=== PATIENT | female | born 1955 | race Caucasian/White ===

== ENCOUNTER 2017-11-03 11:11 | Outpatient (CLI) | payer OTHER ==
[2016-02-24 07:33] VITALS: BP 146/72
--- NOTE | 2017-11-09 09:36 | CONSULTATION REPORT ---
REFERRING PHYSICIAN: Dr. Deepa Garsia CONSULTING PHYSICIAN: Jean-Pierre Maurice MD Dear Dr. Garsia: HISTORY OF PRESENT ILLNESS: Thank you for the consultation request regarding Evonne Jerez. This is a 62- year-old white woman who for the past 6 months now has had right ankle pain, as well as pain, stiffness, and swelling of her hands and wrists. She was given prednisone with prompt improvement. Testing revealed a positive CCP antibody. I did not find a rheumatoid factor. Again, at present, she is doing quite well. 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 PAST MEDICAL HISTORY: Hypertension. PAST SURGICAL HISTORY: 1. Steroid injection in the left knee. 2. Hysterectomy. PRESENT MEDICATIONS: 1. Meloxicam 7.5 mg daily. 2. Hydrochlorothiazide/lisinopril 12.5/20 mg daily. 3. Prednisone 10 mg daily. 4. Tramadol as needed. ALLERGIES: The patient is allergic to: 1. Simvastatin. 2. Zoloft. 3. Acetaminophen. 4. Sulfa-based drugs. SOCIAL HISTORY: The patient does not smoke or drink. FAMILY HISTORY: Family history is negative from a rheumatological point of view. REVIEW OF SYSTEMS: The patient complains of some red eyes, dry mouth, dry nose, swelling of the legs, some heartburn, and hands sensitivity. Morning stiffness is 1 hour. Otherwise, her weight has been stable. She has had no fevers. No weakness. No fatigue. No red eye. No loss of vision. No difficulty swallowing. She has had no chest pain or pleurisy. No cough. No wheezing. No nausea, vomiting , or diarrhea. No dark stools or bloody stools. No urinary tract infections. No skin rashes, hives, photosensitivity, color changes in the hands or feet in the cold. PHYSICAL EXAMINATION: Vital Signs: Height: 5 feet 4 inches. Weight: 248 pounds. T: 96.5, R: 20 , heart rate 85, BP: 140/78. HEENT: Sclerae are anicteric. Conjunctivae are pink. No stomatitis or glossitis. LUNGS: Clear bilaterally with no crackles or wheezing. HEART: Regular rhythm. ABDOMEN: Soft and nontender. VASCULAR: No edema or cyanosis. PERIPHERAL JOINTS: No significant tenderness at the DIPs, PIPs, MCPs, wrists, elbows, and shoulders. Good range of motion at the hips. The left knee is tender mainly on the medial aspect. Both ankles are tender. MTPs are diffusely tender. IMPRESSION: Rheumatoid arthritis with unspecified rheumatoid factor. PLAN: 1. I am keeping her on prednisone 10 mg twice a day. 2. I am introducing methotrexate 3 tablets weekly with folic acid supplementation. 3. I will see her back in 4 weeks. At that time, we will adjust her methotrexate and prednisone depending on her response. Thank you very much for the opportunity to take care of your patients. Best regards, cc: Dr. Deepa CANO
== END 2017-11-03 13:24 ==
LOC: RHEU 11:11
PROVIDERS: ATTEND Internal Medicine
DX: M06.9 Rheumatoid arthritis, unspecified (principal)
CPT/HCPCS: 99213; 99214

== ENCOUNTER 2017-12-08 | Outpatient (CLI) | payer OTHER ==
--- NOTE | 2017-12-11 15:10 | OP Clinic Progress Note ---
Dear Dr. Garsia: REASON FOR VISIT: I had the pleasure of seeing Evonne Jerez in follow up. She responded quite well to prednisone 10 mg twice a day and she stopped it about a week ago. Now, she is having recurrent pain and stiffness in her hands. Her ankle pain is doing well and she has no new medical problems or symptoms. PAST MEDICAL HISTORY: Hypertension. PAST SURGICAL HISTORY: Hysterectomy. PRESENT MEDICATIONS: 1. Hydrochlorothiazide/lisinopril 12.5/20 mg daily. 2. Prednisone 10 mg daily. 3. Tramadol as needed. 4. Methotrexate 3 tablets weekly. 5. Folic acid supplementation. ALLERGIES: Patient reports allergies to: 1. Simvastatin. 2. Zoloft. 3. Tylenol. 4. Sulfa-based drugs. REVIEW OF SYSTEMS: No fevers, chills, sweats, chest pain, shortness of breath, cough, wheezing, nausea, vomiting, or diarrhea. No skin rashes or nodules. No numbness or tingling of extremities. PHYSICAL EXAMINATION: GENERAL: She looks well. VITAL SIGNS: Height: 5 feet 4 inches. Weight: 253 pounds. T: 97.8, R: 18, heart rate 80, BP: 138/80. HEENT: Sclerae are anicteric. Conjunctivae are pink. No stomatitis or glossitis. Neck: No cervical nodes. LUNGS: Clear bilaterally with no crackles or wheezing. HEART: Regular rate and rhythm. ABDOMEN: Soft and nontender. VASCULAR: No edema or cyanosis. PERIPHERAL JOINTS: DIPs, PIPs, and MCPs show just a little tenderness and some swelling at the PIPs. Tenderness at right 3rd MCP. Both wrists have good range of motion. No tenderness. Elbows, shoulders, hips, knees, ankles, and feet are unremarkable. IMPRESSION: Rheumatoid arthritis, rheumatoid factor unspecified, of multiple sites. PLAN: 1. I am bumping up her methotrexate to 6 tablets weekly and folic acid supplementation. 2. I am putting her back on prednisone 10 mg daily. 3. I would like to see her in about 8 weeks. 4. In the meantime, I have given her a lab slip which I hope she can do in your office for a rheumatoid factor, repeat sedimentation rate, CRP, CBC, and CMP, as I understand you will be seeing her in the very near future. Thank you for allowing me to take part in the care of your patient. Best regards, cc: Dr. Deepa CANO
== END 2017-12-08 14:53 ==
DX: M06.89 Other specified rheumatoid arthritis, multiple sites (principal)
CPT/HCPCS: 99213; 99214

== ENCOUNTER 2018-04-06 14:01 | Outpatient (CLI) | payer OTHER ==
[2016-02-24 07:33] VITALS: BP 146/72
--- NOTE | 2018-04-06 17:52 | OP Clinic Progress Note ---
Dear Dr. Garsia: REASON FOR VISIT: I had the pleasure of seeing Evonne Jerez in follow up. She responded to prednisone 10 mg twice a day but ran out of it 2 weeks ago. Now she is having increasing joint pain and stiffness in her hands, knees, and feet. She is tolerating the methotrexate. I had last seen her in November, I guess she missed some appointments. She did have some blood work on December 11. Sedimentate rate at that time was 22. Her rheumatoid factor was positive at 30. Liver functions and CBC were within normal limits. PAST MEDICAL AND SURGICAL HISTORY: 1. Hypertension. 2. Hysterectomy. PRESENT MEDICATIONS: 1. Hydrochlorothiazide/lisinopril 12.5/20 mg daily. 2. Prednisone 10 mg daily. 3. Tramadol as needed. 4. Methotrexate 6 tablets weekly. 5. Folic acid supplementation. ALLERGIES: 1. Simvastatin. 2. Zoloft. 3. Tylenol. 4. Sulfa-based drugs. REVIEW OF SYSTEMS: She has put on a few pounds. No fevers, chills, sweats, chest pain, shortness of breath, cough, wheezing, nausea, vomiting, or diarrhea. No numbness or tingling of her extremities. No mouth sores. PHYSICAL EXAMINATION: VITAL SIGNS: Height: 5 feet 4 inches. Weight: 255 pounds. T: 97.2, R: 20, heart rate 93, BP: 130/80. HEENT: Sclerae are anicteric. Conjunctivae are pink. No stomatitis or glossitis. LUNGS: Clear bilaterally with no crackles or wheezing. HEART: Regular rate and rhythm. ABDOMEN: Soft and nontender. VASCULAR: No edema or cyanosis. JOINTS: A little tenderness at the MCPs, otherwise, the DIPs and PIPs are unremarkable. Wrists are tender. She has some pain on abduction of her shoulders. Hips and knees are unremarkable. Ankles and MTPs are slightly tender. IMPRESSION: Seropositive rheumatoid arthritis of multiple sites. PLAN: 1. I am keeping her on methotrexate 6 tablets weekly. 2. I am decreasing her prednisone to 5 mg daily. 3. I understand she will be seeing you for blood work. I gave her a lab slip for a CBC, CMP, and a Sedimentation rate. 4. I would like to see her back in 2 months and contemplate increasing her methotrexate. Thank you very much for the opportunity to participate in the care of your patients. Best regards, cc: Dr. Deepa CANO
== END 2018-04-06 14:03 ==
LOC: RHEU 14:01
PROVIDERS: ATTEND Internal Medicine
DX: M05.79 Rheumatoid arthritis with rheumatoid factor of multiple sites without organ or systems involvement (principal)
CPT/HCPCS: 99213; 99214

== ENCOUNTER 2019-03-14 19:48 | Emergency (ER) | payer OTHER ==
[2019-03-14] MEDS ORDERED: ASPIRIN 81 MG CHEW TAB PO ONE (19:53)
[2019-03-14] MEDS ORDERED: 0.9 % SODIUM CHLORIDE 1,000 ML IV ONE (19:56)
--- NOTE | 2019-03-14 20:01 | ED Physician Documentation ---
Chest Pain - HISTORIAN Historian: patient - HPI Stated Complaint: chest pain Chief Complaint: Chest Pain Onset: hours (3) Timing: sudden onset Duration: constant Last known Well Date: 03/14/19 Last Known Well Time: 17:00 Context: rest Severity: moderate Quality: pressure, tightness, burning Chest Pain Radiation: back Chest Pain Signs/Symptoms: denies: nausea, vomiting, diaphoresis, cool extremities, dizziness, dyspnea, tachypnea, tachycardia, hypotension, palpitations, weakness Worsened By: nothing Relieved By: nothing Further Comments: yes (She states since starting the macrobid this evening for a UTI she felt the chest pain. This started about 5 pm the chest pain goes through to her back. No nausea or diaphoresis. She denies any injury. NO shortness of breath. She did not try any OTC meds. No positional change with pain. She has no history of cardiac concerns) - ROS CONST: none MS/LYMPH: none GI/: none EYES/ENT: none SKIN/ENDO: none NEURO/PSYCH: none - PAST HX CT risk factors: hypertension TAD/AAA risk factors: none Neuro deficit: none GI disease: GERD Lung disease: none Surgeries/Procedures: none Immunizations: UTD Allergies/Adverse Reactions: Allergies Allergy/AdvReac Type Severity Reaction Status Date / Time Sulfa (Sulfonamide Allergy Severe Hives Verified 02/23/16 22:49 Antibiotics) [Sulfa(Sulfonamide Antibiotics)] Home Medications: Ambulatory Orders Medication Instructions Recorded Aspirin 81 mg PO DAILY 04/19/13 - SOCIAL HX Smoking History: non-smoker Alcohol Use: none Drug Use: none - FAMILY HX Family HX: none - VITAL SIGNS Vital Signs: Vital Signs Temp Pulse Resp BP Pulse Ox 146/72 02/24/16 06:38 - REVIEWED ASSESSMENTS Nursing Assessment Reviewed: Yes Vitals Reviewed: Yes Progress - Progress Progress: 2034: lab results obtained will re draw and run for confirmation. Pain is currently rated at a zero DG 2114 discussed results and she is feeling "good now" she has no current complaints - plan discussed she is agreeable DG ED Results Lab/Radiology - Orders Orders: ED Orders Category Date Time Status Continuous EKG monitoring Q30M Care 03/14/19 19:54 Ordered Continuous Pulse Oximetry Q30M Care 03/14/19 19:[address] IV Lock 1T Care 07/25/19 19:54 Ordered CHEST 1VIEW [RAD] Stat Exams 03/14/19 Ordered CBC/PLATELET/DIFF Stat Lab 03/14/19 19:53 Ordered CMP Stat Lab 03/14/19 19:53 Ordered CREATINE KINASE Stat Lab 03/14/19 19:53 Ordered D DIMER Stat Lab 03/14/19 Ordered TROPONIN I Stat Lab 03/14/19 19:54 Ordered 0.9 % Sodium Chloride [Normal Saline] 1,000 ml Med 03/14/19 19:56 Ordered IV NOW Aspirin [Mandy] Med 03/14/19 19:53 Once 324 mg PO NOW ONE Oxygen Daily Oxygen 03/14/19 20:00 Ordered EKG WITH COMPARISON Stat Ther 03/14/19 19:54 Ordered Chest Pain Physical Exam - EXAM General Appearance: no acute distress, alert EENT: eye inspection normal, no signs of dehydration Respiratory: no resp. distress CVS: reg. rate & rhythm, no murmur Abdomen: soft, normal bowel sounds, no distension Skin: warm/dry Extremities: non-tender, normal range of motion, no evidence of injury, no edema Neuro: oriented X3 Discharge Clincal Impression: Chest pain Referrals: Deepa Garsia MD [Primary Care Provider] - 2 Days Comments: 1. Continue meds 2. Call PCP In am about follow up 3. Increase fluids 4. Return to ER for any increasing concerns Condition: Stable Disposition: 01 HOME, SELF-CARE Decision to Admit: NO Date of Decison to Admit: 03/14/19 Decision Time: 21:19
[2019-03-14 20:14] LABS: BASOPHILS % 0.5 % (0.0-1.5); NEUTROPHILS # 7.9 # k/uL (1.4-7.7)
[2019-03-14] MEDS ORDERED: MAG HYDROX/ALUMINUM HYD/SIMETH 30 ML, Lidocaine 2% Viscous 15 ML PO ONE ×2 (20:16)
--- NOTE | 2019-03-14 20:24 | Diagnostic Imaging Report ---
FERNANDO DEGROOT [facility] [id number] [facility] [address] [address] [place], [place]. [address] Report Submission Date: Mar 14, 2019 8:21:38 PM CDT Patient Study Name: EDWARD LOMELI Date: Mar 14, 2019 7:49:11 PM CDT Modality Type: DX Gender: F Description: CHEST 1VIEW : 55 Institution: [facility] Physician: FERNANDO DEGROOT Portable chest History: Chest pain Findings: Low lung volumes are observed with bronchovascular crowding at the lung bases. There is no infiltrate or pleural effusion. Heart size and pulmonary vascularity are normal. Electronically signed on Mar 14, 2019 8:21:38 PM CDT by: Gunner CANO
[2019-03-14 20:36] LABS: eGFR (Non-African) > 60
[2019-03-14 21:46] VITALS: BP 153/76
== END 2019-03-14 21:39 | disposition home or self-care (01) ==
LOC: ED 19:48
DX: R07.89 Other chest pain (principal); I10 Essential (primary) hypertension
CPT/HCPCS: 71045; 80053; 82550; 84484; 85025; 85379; 96360; 99285; A9270; J7030; S1016